=== PATIENT | female | born 1995 | race Caucasian/White ===

== ENCOUNTER → 2021-05-04 13:45 | Outpatient (CLI) | payer OTHER, SELFPAY | PROVIDERS: PCP Registered Nurse Diabetes Educator; Visit Provider Registered Nurse Diabetes Educator | DX: N89.8 Other specified noninflammatory disorders of vagina (principal) | CPT/HCPCS: 87210; 87220 ==

== ENCOUNTER 2021-07-20 22:03 | Emergency (ER) | payer OTHER, SELFPAY ==
[2021-07-20 22:27] VITALS: BP 124/71; PULSE 83; RESP 14; TEMP 36.2; O2SAT 97; BMI 29.6
--- NOTE | 2021-07-20 23:45 | DI.CT.S_ITS ---
PROCEDURE: CT KIDNEY URETER BLADDER (KUB) INDICATIONS: flank pain, TECHNIQUE: Axial sections were acquired from the lung bases to the pubic symphysis. Coronal and sagittal reformats were performed. For radiation dose reduction, the following was used: automated exposure control, adjustment of mA and/or kV according to patient size. COMPARISON:None. FINDINGS: Image quality: Excellent. Lung bases: Unremarkable. Heart: No significant findings. URINARY: Right Kidney: No stones or hydronephrosis. Right Ureter: No hydroureter. Left Kidney: No stones or hydronephrosis. Left Ureter: No hydroureter. Bladder: Normal wall thickness. No stones. ABDOMEN: Liver: Unremarkable. Gallbladder: Unremarkable. Biliary ducts: Unremarkable. Pancreas: Unremarkable. Spleen: Unremarkable. Adrenal Glands: Unremarkable. Stomach and Bowel: Stomach, small bowel loops, and colon are unremarkable. Appendix is normal. Peritoneum: No abnormal intraperitoneal fluid. No free air. Ventral Wall: No hernia. Abdominal Nodes: No enlarged retroperitoneal or mesenteric lymph nodes. Vessels: Aorta and inferior vena cava are normal in size. PELVIS: Pelvic Organs: 3.2 centimeter left adnexal cyst. Intrauterine device centrally positioned within the uterus. Pelvic Nodes: Unremarkable. Miscellaneous: No inguinal hernias are seen. Bones: Unremarkable. IMPRESSION: 1. No renal stone or hydronephrosis. 2. 3.2 centimeter left adnexal cyst. Recommend pelvic ultrasound for additional evaluation if clinically indicated. 3. Appendix is normal. 4. No free fluid or free air. Dictated by: Erma Robertson MD, PhD on 07/21/2021 at 8:10 Approved by: Erma Robertson MD, PhD on 07/21/2021 at 8:13
[2021-07-21] MEDS: KETOROLAC 30 MG/ML VIAL IV (00:01)
[2021-07-21 00:24] LABS: Add Manual Diff / Slide Review NO; Basophils Absolute Auto 100 /uL (0-100); Basophils Percent Auto 1.1 % (0-2); Eosinophils Absolute Auto 200 /uL (0-450); Eosinophils Percent Auto 1.4 % (2-4); Hematocrit 40.3 % (36-46); Hemoglobin 13.6 g/dL (12.0-16.0); Lymphocytes Absolute Auto 2200 /uL (1100-4500); Lymphocytes Percent Auto 17.6 % (25-40); Mean Corpuscular HGB Conc 33.7 % (30-36); Mean Corpuscular Hemoglobin 30.9 PG (26-34); Mean Corpuscular Volume 91.8 fL (80-100); Monocytes Absolute Auto 1000 /uL (0-900); Neutrophils Absolute Auto 8800 /uL (1500-7000); Neutrophils Percent Auto 71.9 % (50-75); Platelet Count 324 X10^3/uL (150-400); Red Blood Cell Count 4.39 X10^6/uL (4.0-5.2); Red Cell Distribution Width 12.3 % (11.6-14.8); White Blood Cell Count 12.3 X10^3/uL (4.5-11.0)
[2021-07-21 00:29] LABS: Alanine Aminotransferase 23 IU/L (<35); Albumin 4.3 g/dL (3.5-5.0); Albumin Globulin Ratio 1.5 (1.0-2.8); Alkaline Phosphatase 64 U/L (38-126); Aspartate Aminotransferase 26 IU/L (14-36); BUN Creatinine Ratio 17.3 (6-22); Bilirubin Total 0.3 mg/dL (0.2-1.3); Blood Urea Nitrogen 13 mg/dL (7-17); Calcium 9.6 mg/dL (8.4-10.2); Carbon Dioxide 27 mmol/L (22-32); Chloride 106 mmol/L (98-107); Estimated Glomerular Filt Rate > 60.0 mL/min (>60); Globulin 2.8 g/dL (1.7-4.1); Glucose 103 mg/dL (70-100); HEMOLYSIS < 15 (0-50); Lipase 131 U/L (23-300); Potassium 4.1 mmol/L (3.4-5.1); Sodium 139 mmol/L (137-145); Total Protein 7.1 g/dL (6.3-8.2)
--- NOTE | 2021-07-21 01:35 | ED.BACK ---
HPI - Back Pain/Injury General Chief Complaint: Back Pain/Injury Stated Complaint: pain in back, can't breath very well Time Seen by Provider: 07/20/21 23:45 Source: patient Mode of arrival: Ambulatory Limitations: no limitations History of Present Illness HPI Narrative: A 25-year-old female who states she has had some left flank pain that started in the last 24 hours. She has had some urinary frequency and sense of urgency and incomplete emptying but no dysuria. Patient denies any fevers or chills. No chest pain or shortness of breath. No nausea or vomiting. She has had inconsistent stools but no diarrhea constipation. No vaginal bleeding or discharge. Patient does have a known IUD. She has irregular very light menses. Patient has not had chronic abdominal or back pain. She has not had any recent injuries. She does have a history of bipolar she states her medication list is up-to-date but she has not been taking her medications recently. Related Data Home Medications Medication Instructions Recorded Confirmed aripiprazole 5 mg tablet (Abilify) 2.5 mg PO DAILY tab 03/03/21 05/04/21 hydroxyzine HCl 25 mg tablet 25 mg PO DAILY PRN tab 03/03/21 05/04/21 levonorgestrel 20 mcg/24 hours (6 INTRAUTERINE 03/03/21 05/04/21 yrs) 52 mg intrauterine device (Mirena) trazodone 50 mg tablet 50 mg PO BEDTIME PRN 03/03/21 05/04/21 lamotrigine 25 mg tablet 25 mg PO ONCE 05/04/21 05/04/21 Previous Rx's Medication Instructions Recorded metronidazole 500 mg tablet 500 mg PO BID #14 tab 05/04/21 (Flagyl) Allergies Allergy/AdvReac Type Severity Reaction Status Date / Time No Known Drug Allergies Allergy Unverified 03/03/21 10:36 Review of Systems Review of Systems ROS Unobtainable: All systems reviewed & are unremarkable except as noted in HPI and below Patient History Medical History Acne (~2018) Ankle pain (~2000) Bipolar disorder (~2019) Depression (~2009) Electronic cigarette use Hearing loss in right ear (~2002) History of pseudoseizure PTSD (post-traumatic stress disorder) (~2018) Seizure (~2016) Surgical History History of knee surgery (~06/2010) Family History Father Mental health problem Mother Mental health problem Hyperlipidemia Grandfather Cancer Social History Smoking Status: Former smoker Smoking Status: Former smoker alcohol intake frequency: a few times a week Substance Use Type: does not use Exam Narrative Exam Narrative: GENERAL: Alert and oriented x three, female in mild distress. HEENT: Head normocephalic, atraumatic, EOMI, pupils reactive, face symmetric, moist mucous membranes NECK: Supple, full range of motion CARDIOVASCULAR: Regular rate and rhythm without murmurs, rubs or gallops. RESPIRATORY: Breath sounds equal bilaterally, no wheezes rales or rhonchi. ABDOMEN: Soft, nontender. Normoactive bowel sounds all 4 quadrants. No guarding or rebound, rigidity, no mass : Mild leftCVA tenderness, no right CVA tenderness. EXTREMITIES: Normal range of motion, no clubbing or edema. Neurovascularly intact NEUROLOGICAL: Cranial nerves II through XII grossly intact. Moving all extremities SKIN: Warm, dry, no petechiae, no rashes or lesions. Initial Vital Signs Initial Vital Signs: Vital Signs Temperature 97.1 F L 07/20/21 22:27 Pulse Rate 83 07/20/21 22:27 Respiratory Rate 14 07/20/21 22:27 Blood Pressure 124/71 07/20/21 22:27 Pulse Oximetry 97 07/20/21 22:27 Course Orders Ordered: ED Orders 07/20/21 23:45 CT kidney ureter bladder (KUB) Stat Complete Blood Count AUTO DIFF Stat Comprehensive Metabolic Panel Stat Lipase Stat 07/21/21 00:01 Urine Microscopic Stat 07/21/21 01:46 Urine Culture Stat Discontinued Medications Ketorolac Tromethamine (Ketorolac 30 Mg/Ml Vial) 30 mg IV NOW ONE Stop: 07/20/21 23:46 Last Admin: 07/21/21 00:01 Dose: 30 mg Documented by: CHIDI Vital Signs Vital signs: Vital Signs - 8 hr 07/20/21 22:27 07/21/21 01:46 Temperature 97.1 F L Pulse Rate 83 64 Respiratory Rate 14 16 Blood Pressure 124/71 99/60 Pulse Oximetry 97 98 MDM - Back Pain/Injury Lab Data Result diagrams: 07/21/21 00:08 07/21/21 00:08 Labs: Lab Results 07/20/21 07/21/21 07/21/21 Range/Units 22:38 00:08 00:08 WBC 12.3 H (4.5-11.0) X10^3/uL RBC 4.39 (4.0-5.2) X10^6/uL Hgb 13.6 (12.0-16.0) g/dL Hct 40.3 (36-46) % MCV 91.8 (80-100) fL MCH 30.9 (26-34) PG MCHC 33.7 (30-36) % RDW 12.3 (11.6-14.8) % Plt Count 324 (150-400) X10^3/uL Neut % (Auto) 71.9 (50-75) % Lymph % (Auto) 17.6 L (25-40) % [place] % (Auto) 8.0 (3-14) % Eos % (Auto) 1.4 L (2-4) % Baso % (Auto) 1.1 (0-2) % Neut # (Auto) 8800 H (4799-8987) /uL Lymph # (Auto) 2200 (2263-3650) /uL [place] # (Auto) 1000 H (0-900) /uL Eos # (Auto) 200 (0-450) /uL Baso # (Auto) 100 (0-100) /uL Sodium 139 (137-145) mmol/L Potassium 4.1 (3.4-5.1) mmol/L Chloride 106 (98-107) mmol/L Carbon Dioxide 27 (22-32) mmol/L BUN 13 (7-17) mg/dL Creatinine 0.75 (0.52-1.04) mg/dL Estimated GFR > 60.0 (>60) mL/min BUN/Creatinine Ratio 17.3 (6-22) Glucose 103 H (70-100) mg/dL Calcium 9.6 (8.4-10.2) mg/dL Total Bilirubin 0.3 (0.2-1.3) mg/dL AST 26 (14-36) IU/L ALT 23 (<35) IU/L Alkaline Phosphatase 64 (38-126) U/L Total Protein 7.1 (6.3-8.2) g/dL Albumin 4.3 (3.5-5.0) g/dL Globulin 2.8 (1.7-4.1) g/dL Albumin/Globulin Ratio 1.5 (1.0-2.8) Lipase 131 (23-300) U/L Urine RBC 0-1/hpf (0-5/HPF) Urine WBC 5-10/hpf H (0-5/HPF) Ur Squamous Epith Cells 0-1 /hpf (0-5/HPF) Amorphous Sediment 3+ Urine Bacteria Few (2-10) H (None) Ur Culture Indicated? Culture not indicate Point of Care Testing Test Results Negative Urine Dip Bedside Urine Glucose Negative Bedside Urine Bilirubin - Negative Bedside Urine Ketone - Negative Urine Specific [place] 1.015 Bedside Urine Occult Blood +/- Bedside Urine pH 8.0 Bedside Urine Protein - Negative Bedside Urine Urobilinogen - Negative Bedside Urine Nitrite - Negative Bedside Urine Leukocytes - Negative Esterase Imaging Data CT scan - abdomen/pelvis: Radiologist's Impression: Subsegmental atelectasis lung bases. IUD with an anteverted uterus. Cyst within left adnexa measuring 3 cm. Recommend nonemergent ultrasound for further characterization. No other acute changes appreciated. MDM Narrative Medical decision making narrative: 25-year-old female with sense of incomplete emptying, some mild left flank pain. Patient has left adnexal cyst which is 3 cm. She has a fairly benign exam with some mild left flank discomfort. Urine does not show any clear signs of infection. She has been afebrile. After discussion patient she politely defers a pelvic exam currently. We discussed getting abdominal ultrasound but patient defers this till later. She is aware she should have ultrasound in the future. Urine culture was ordered and there is potential for UTI/early pyelo. Return precautions discussed. All questions answered. Discharge Plan Departure Patient Disposition: Home Clinical Impression: Flank pain, Adnexal cyst Instructions: DI for Ovarian Cyst Activity Restrictions/Additional Instructions: Follow-up with your provider in the next week if her symptoms are not improving. Your imaging does show a cyst on the left adnexal area, this may be an ovarian cyst. It is recommended to have ultrasound for further evaluation. Your physician can order this. Urine culture was sent if this is positive you will be contacted to start antibiotics. You may take Tylenol up to a 1000 mg every 8 hours and/or ibuprofen up to 800 mg every 8 hours as needed for pain. Please return for fevers, new or worsening abdominal or flank pain, persistent vomiting, black or bloody stools, lightheadedness or passing out, new vaginal discharge or other new or concerning symptoms. Prescriptions: No Action lamotrigine 25 mg tablet 25 mg PO ONCE RF: 0 metronidazole [Flagyl] 500 mg tablet 500 mg PO BID Qty: 14 RF: 0 aripiprazole [Abilify] 5 mg tablet 2.5 mg PO DAILY RF: 0 trazodone 50 mg tablet 50 mg PO BEDTIME PRNRF: 0 Mirena 20 mcg/24 hours (6 yrs) 52 mg intrauterine device intrauterine RF: 0 hydroxyzine HCl 25 mg tablet 25 mg PO DAILY PRNRF: 0 Referrals: Michael Cooper ARNP [Primary Care Provider] - Stand Alone Forms: Work Release Note
[2021-07-21 01:46] VITALS: BP 99/60; PULSE 64; RESP 16; O2SAT 98
[2021-07-21 02:21] LABS: RBC Urine 0-1/HPF (0-5/HPF); WBC Urine 5-10/HPF (0-5/HPF)
[2021-07-21 02:22] LABS: Amorphous Sediment Urine 3+; Bacteria Urine Few (2-10); Squamous Epithelial Cell Urine 0-1 /HPF (0-5/HPF)
== END 2021-07-21 01:57 | disposition home or self-care (01) ==
PROVIDERS: Emergency Provider Emergency Medicine; PCP Registered Nurse Diabetes Educator
DX: R10.9 Unspecified abdominal pain (principal); N94.9 Unspecified condition associated with female genital organs and menstrual cycle
CPT/HCPCS: 36415; 74176; 80053; 81003; 81015; 81025; 83690; 85025; 87077; 87086; 87147; 87186; 96374; 99284; J1885

== ENCOUNTER 2022-03-20 12:14 | Emergency (ER) | payer OTHER, SELFPAY ==
--- NOTE | 2022-03-20 12:21 | DI.RAD.S_ITS ---
PROCEDURE: XR FOOT LT 2V INDICATIONS: fall on foot TECHNIQUE: 2 views of the foot were acquired. COMPARISON: None. FINDINGS: Bones: No fractures or dislocations. No suspicious bony lesions. Soft tissues: No tibiotalar joint effusion. Achilles tendon appears normal. IMPRESSION: No acute abnormalities. If clinical symptoms persist or clinical suspicion for pathology is high, a repeat examination in 7-10 days, or advanced imaging such as CT or MRI is suggested for further evaluation. Dictated by: Vicenta Larson M.D. on 03/20/2022 at 11:45 Approved by: Vicenta Larson M.D. on 03/20/2022 at 11:50
[2022-03-20 12:39] VITALS: BP 114/65; PULSE 83; RESP 16; TEMP 36.9; O2SAT 98; BMI 28.3
[2022-03-20] MEDS: ACETAMINOPHEN 325 MG TABLET 975 MG PO (13:29)
[2022-03-20] MEDS: KETOROLAC 30 MG/ML VIAL 15 MG IM (13:30)
[2022-03-20 13:34] VITALS: BP 133/66; PULSE 72; RESP 18; O2SAT 97
--- NOTE | 2022-03-20 14:02 | ED_ITS ---
HPI - Extremity Injury (Lower) <GENE Devlin - Last Filed: 03/20/22 15:24> General Chief Complaint: Extremity Injury, Lower Stated Complaint: Fell on left foot, cant put pressure on it Time Seen by Provider: 03/20/22 12:20 History of Present Illness HPI Narrative: This is a 22-year-old female presents to the emergency department for left foot and anterior ankle pain with bearing weight after she states she fell on her left foot last night while walking over a doorway threshold. She has ecchymosis on the dorsum of her left foot, complains of lateral pain with bearing weight along the 5th metatarsal, denies any open wound, denies ankle pain with flexion extension, denies any plantar pain but endorses lateral left foot pain along her 5th metatarsal. Patient denies taking any medication for today, she is driving, she has her son with her. She denies any sensation changes, states she has a history of rolling her ankles and frequent ankle sprains. Related Data Home Medications Medication Instructions Recorded Confirmed aripiprazole 5 mg tablet (Abilify) 2.5 mg PO DAILY tab 03/03/21 05/04/21 hydroxyzine HCl 25 mg tablet 25 mg PO DAILY PRN tab 03/03/21 05/04/21 levonorgestrel 20 mcg/24 hours (7 INTRAUTERINE 03/03/21 05/04/21 yrs) 52 mg intrauterine device (Mirena) trazodone 50 mg tablet 50 mg PO BEDTIME PRN 03/03/21 05/04/21 lamotrigine 25 mg tablet 25 mg PO ONCE 05/04/21 05/04/21 Previous Rx's Medication Instructions Recorded metronidazole 500 mg tablet 500 mg PO BID #14 tab 05/04/21 (Flagyl) diclofenac sodium 1 % topical gel 2 g TOPICAL QID PRN #100 g 03/20/22 (Voltaren Arthritis Pain) Allergies Allergy/AdvReac Type Severity Reaction Status Date / Time No Known Drug Allergies Allergy Unverified 03/03/21 10:36 Review of Systems <GENE Devlin - Last Filed: 03/20/22 15:24> Review of Systems Narrative: General: denies fever, chills, malaise, sweats, fatigue Head/Neck: denies headache, neck pain, dizziness Eyes: denies visual changes, eye pain Cardio: denies chest pain, palpitations, edema Respiratory: denies dyspnea, cough, orthopnea MSK: Endorses left foot and left ankle pain on the at lateral aspect, denies any sensation changes or muscle weakness Skin: denies rash, itching, skin lesions or other Neuro: denies numbness, tingling Patient History <GENE Devlin - Last Filed: 03/20/22 15:24> Medical History Acne (~2018) Ankle pain (~2000) Bipolar disorder (~2019) Depression (~2009) Electronic cigarette use Hearing loss in right ear (~2002) History of pseudoseizure PTSD (post-traumatic stress disorder) (~2018) Seizure (~2016) Surgical History History of knee surgery (~06/2010) Family History Father Mental health problem Mother Mental health problem Hyperlipidemia Grandfather Cancer Social History Smoking Status: Former smoker Smoking Status: Former smoker alcohol intake frequency: a few times a week Substance Use Type: does not use Exam <GENE Devlin - Last Filed: 03/20/22 15:24> Narrative Exam Narrative: Independently reviewed vitals signs and nursing notes. General: cooperative, comfortable, in no acute distress, well developed and well groomed Head: atraumatic, symmetrical facial expressions Neck: supple, atraumatic, without lymphadenopathy. Eyes: pupils equal round and reactive, EOMI, conjunctiva normal Nose: nares patent, no rhinorrhea Mouth/Throat: uvula midline, moist mucus membranes Cardiovascular: regular rate and rhythm, no peripheral edema, warm extremities Respiratory: normal effort, able to speak in complete sentences, no audible wheezing, stridor, or rales. No retractions or tachypnea. MSK: moves all extremities, ecchymosis to the left dorsum midfoot, ecchymosis and tenderness to ATFL palpation, no tenderness over CFL, 5th metatarsal, medial or lateral malleolus, no plantar ecchymosis, DP and PT pulses are intact, no weakness, cap refill less than 2 seconds Skin: brisk capillary refill, no rash, no erythema, ecchymosis to the dorsum of her left midfoot Neuro: normal speech and cognition, A&O x3, normal tone Psych: mental status is grossly normal, congruent mood, normal affect, pleasant and cooperative Initial Vital Signs Initial Vital Signs: Vital Signs Temperature 98.4 F 03/20/22 12:39 Pulse Rate 83 03/20/22 12:39 Respiratory Rate 16 03/20/22 12:39 Blood Pressure 114/65 03/20/22 12:39 Pulse Oximetry 98 03/20/22 12:39 <Mata Kovacs DO - Last Filed: 03/21/22 07:06> Initial Vital Signs Initial Vital Signs: Vital Signs Temperature 98.4 F 03/20/22 12:39 Pulse Rate 83 03/20/22 12:39 Respiratory Rate 16 03/20/22 12:39 Blood Pressure 114/65 03/20/22 12:39 Pulse Oximetry 98 03/20/22 12:39 Procedures <GENE Devlin - Last Filed: 03/20/22 15:24> Orthopedic Splinting/Casting Injury #1: Side: left Lower Extremity Injury Location: ankle and foot Lower Extremity Immobilizer: boot orthosis Post splinting neuro exam: intact and no change Post splinting vascular exam: intact Placed by: Nursing Course <GENE Devlin - Last Filed: 03/20/22 15:24> Orders Ordered: Discontinued Medications Acetaminophen (Acetaminophen 325 Mg Tablet) 975 mg PO NOW ONE Stop: 03/20/22 13:23 Last Admin: 03/20/22 13:29 Dose: 975 mg Documented by: DOROTA Ketorolac Tromethamine (Ketorolac 30 Mg/Ml Vial) 15 mg IM NOW ONE Stop: 03/20/22 13:23 Last Admin: 03/20/22 13:30 Dose: 15 mg Documented by: DOROTA Vital Signs Vital signs: Vital Signs - 8 hr 03/20/22 12:39 03/20/22 13:34 Temperature 98.4 F Pulse Rate 83 72 Respiratory Rate 16 18 Blood Pressure 114/65 133/66 Pulse Oximetry 98 97 <Mata Kovacs DO - Last Filed: 03/21/22 07:06> Orders Ordered: Discontinued Medications Acetaminophen (Acetaminophen 325 Mg Tablet) 975 mg PO NOW ONE Stop: 03/20/22 13:23 Last Admin: 03/20/22 13:29 Dose: 975 mg Documented by: DOROTA Ketorolac Tromethamine (Ketorolac 30 Mg/Ml Vial) 15 mg IM NOW ONE Stop: 03/20/22 13:23 Last Admin: 03/20/22 13:30 Dose: 15 mg Documented by: DOROTA Vital Signs Vital signs: Vital Signs - 8 hr 03/20/22 12:39 03/20/22 13:34 Temperature 98.4 F Pulse Rate 83 72 Respiratory Rate 16 18 Blood Pressure 114/65 133/66 Pulse Oximetry 98 97 MDM - Extremity Injury (Lower) <GENE Devlin - Last Filed: 03/20/22 15:24> Imaging Data Extremity x-ray #1: Radiologist's Impression: PROCEDURE:? XR FOOT LT 2V ? INDICATIONS:? fall on foot ? TECHNIQUE:? 2 views of the foot were acquired.? ? COMPARISON:? None. ? FINDINGS:? ? Bones:? No fractures or dislocations.? No suspicious bony lesions.? ? Soft tissues:? No tibiotalar joint effusion.? Achilles tendon appears normal.? ? ? IMPRESSION:? No acute abnormalities.? If clinical symptoms persist or clinical suspicion for pathology is high, a repeat examination in 7-10 days, or advanced imaging such as CT or MRI is suggested for further evaluation. ? ? Dictated by: Vicenta Larson M.D. on 03/20/2022 at 11:45 ? ? Approved by: Vicenta Larson M.D. on 03/20/2022 at 11:50 ? MDM Narrative Medical decision making narrative: This is a 26-year-old female who presents to the emergency department with left dorsal foot pain and anterior left ankle pain after she states she fell on her left foot last night after tripping on a threshold to a door. Patient states that is painful to bear weight on the lateral aspect of her foot, not on the plantar surface, and she has ecchymosis with tenderness over the ATFL ligament. The x-ray of her left foot is negative for any acute osseous abnormality. No tibiotalar joint effusion and again is tendon appear normal. Patient did not have tenderness over medial or lateral malleolus, she did have tenderness over ATFL ligament, no tenderness over CFL, proximal 5th metatarsal. PT and DP pulses her left foot are 2+, cap refill less than 2 seconds. Patient was fitted in a walking boot, encouraged to follow-up with podiatry if not better after 1 week for another image. She was given Toradol and Tylenol in the emergency department, patient is appropriate and amenable to discharge home. Vital signs are stable on repeat examination is unremarkable. Patient has been informed of results. Patient has been given strict return to ER precautions for any new or worsening symptoms. Patient understands to follow up closely with outpatient providers as instructed. Patient understands plan and agrees to discharge home. All questions and concerns answered at this time. Discharge Plan Departure Patient Disposition: Home Clinical Impression: Foot sprain Qualifiers: Encounter type: initial encounter Laterality: left Qualified Code(s): S93.602A - Unspecified sprain of left foot, initial encounter Ankle sprain Qualifiers: Encounter type: initial encounter Involved ligament of ankle: anterior talofibular ligament Laterality: left Qualified Code(s): S93.492A - Sprain of other ligament of left ankle, initial encounter Instructions: Ankle Sprain, DI for Foot Pain Activity Restrictions/Additional Instructions: *You have been diagnosed with a left ankle sprain, likely the ATFL ligament. Please wear this walking boot while you are getting around until it is not painful to walk on any longer. If this is intolerable to bear weight, please follow-up with Podiatry in a week or more. A repeat x-ray might be helpful if it is still this painful over week from now. There are no fractures on your x- ray today. Please use Voltaren gel on your foot 2 to 3 times a day over the painful area, take Tylenol and ibuprofen as necessary for your pain, try to avoid bearing weight as much as possible, please ice this frequently and at least keep it elevated as much as possible. I hope that you feel better soon. *What to do: *Please continue to take your regular medications as directed. [x] New medication prescriptions sent to your pharmacy: [ [facility]] [ ] New medication written as a paper prescription [ ] No new medications given *Please follow up with your primary care provider in 2-3 days, call for an appointment. Let them know you were seen in the Emergency Department and that we asked that you be seen for follow-up. We will electronically transmit a record of today's note if your PCP is in our system *If you do not have a primary care provider please contact [phone] to establish care with one of the [facility] primary care providers. *Return to Emergency Department if you should have any new, worsening or concerning symptoms, such as [fever greater than 101F, chills, worsening pain, persistent vomiting or other bothersome symptoms] Prescriptions: New diclofenac sodium [Voltaren Arthritis Pain] 1 % gel 2 g topical QID PRN (Reason: pain at injection site) Qty: 100 0RF Rx Instructions: apply to single elbow, wrist or hand; for hand includes palm/fingers/back of hand No Action lamotrigine 25 mg tablet 25 mg PO ONCE 0RF metronidazole [Flagyl] 500 mg tablet 500 mg PO BID Qty: 14 0RF Rx Instructions: DO NOT DRINK ALCOHOL WHILE TAKING MED aripiprazole [Abilify] 5 mg tablet 2.5 mg PO DAILY 0RF trazodone 50 mg tablet 50 mg PO BEDTIME PRN0RF Mirena 20 mcg/24 hours (6 yrs) 52 mg intrauterine device intrauterine 0RF hydroxyzine HCl 25 mg tablet 25 mg PO DAILY PRN0RF Referrals: Hansa Garza DPM [Physician] - Michael Cooper ARNP [Primary Care Provider] - <Mata Kovacs DO - Last Filed: 03/21/22 07:06> [facility] ED [facility] Attestation: I was immediately available in the department for consultation. This documentation has been reviewed and I agree with assessment and plan. Supervised by Mata Kovacs DO
== END 2022-03-20 13:37 | disposition home or self-care (01) ==
PROVIDERS: Emergency Provider Nurse Practitioner Critical Care Medicine; PCP Registered Nurse Diabetes Educator
DX: S93.602A Unspecified sprain of left foot, initial encounter (principal); S93.492A Sprain of other ligament of left ankle, initial encounter; W01.0XXA Fall on same level from slipping, tripping and stumbling without subsequent striking against object, initial encounter
CPT/HCPCS: 73620; 96372; 99283; 99284; J1885